=== PATIENT | female | born 1975 | race Caucasian/White ===

== ENCOUNTER 2018-05-20 12:54 | Emergency (ER) | payer OTHER ==
[2018-05-20 13:03] VITALS: BP 119/73
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
[2018-05-20] MEDS ORDERED: LET GEL TOPICAL 1 EA SYR TP ONE (13:27)
[2018-05-20] MEDS ORDERED: IBUPROFEN 200 MG TAB PO ONE (13:27)
== END 2018-05-20 14:00 | disposition home or self-care (01) ==
LOC: CED 12:54
DX: S01.512A Laceration without foreign body of oral cavity, initial encounter (principal); V18.0XXA Pedal cycle driver injured in noncollision transport accident in nontraffic accident, initial encounter; Y93.55 Activity, bike riding